=== PATIENT | female | born 1990 | race Caucasian/White ===

== ENCOUNTER → 2016-05-11 | Outpatient (CLI) | payer MEDICAID ==
[~2016-05-11] MED LIST: CEPHALEXIN MON500 MG PO
--- NOTE | 2016-05-11 14:17 | RADIOLOGY REPORT PS360 ---
US PELVIS-TRANSVAGINAL ONLY HISTORY: HEAVY BLEEDING ORDERING PHYSICIAN: Jerod Arias MD PATIENT AGE: 25 years COMPARISON: None FINDINGS: The uterus measures 7 x 3 x 5 cm. Combined and endometrial thickness is 5 mm. A section scar is present. Uterus is otherwise unremarkable. The left ovary is 3.4 x 2 cm containing small follicles measuring up to 1 cm. The right ovary measures 3 x 1.8 cm also containing small follicles. No dominant cyst evident. No cul-de-sac fluid apparent. IMPRESSION: Small bilateral ovarian follicles otherwise negative pelvic ultrasound
== END ==
LOC: RAD 09:35
DX: N92.0 Excessive and frequent menstruation with regular cycle (principal)